=== PATIENT | female | born 1980 | race Caucasian/White ===

== ENCOUNTER 2016-05-14 20:49 | Inpatient (IN) | payer OTHER ==
--- NOTE | ~2016-05-14 | PN ---
Unit #: [id number] #: [id number] Patient: PENG HOFFMAN [id number] [facility] [address] [place] [address] [id number] MR#: [id number] NAME: PENG HOFFMAN ROOM: [facility] Age: 36 Sex: F Admission Date: 05/14/2016 : 1980 Attending Physician: Juliet Elder M.D. Admitting Physician: Juliet Elder M.D. Primary Care Physician: Primary Care Physician Hannah CIFUENTES PROGRESS NOTES DATE OF SERVICE: 05/16/2016 SUBJECTIVE Ms. Hoffman is a 36-year-old white female, who was seen today and chart was reviewed, and case was discussed with the staff. She has been anxious, withdrawn, though has not shown any agitation or irritability that she will be able to followup and cooperative with treatment recommendations and has been taking the medications and tolerating them fairly well with no reported side effects. MENTAL STATUS EXAMINATION Young white female, who was casually dressed with fair personal hygiene, appears to be in no acute distress or discomfort. She was awake and alert on interaction with intact orientation. Her mood was anxious with a congruent affect. She denies any suicidal or homicidal ideations. Her insight and judgment remain slightly impaired. TREATMENT PLAN 1. We will continue her on her current medications and treatment protocol. We will monitor her response to medications and make further adjustments as needed. 2. We will continue to follow up. Dictated by... Rangel Frye/jack TD: 05/17/2016 00:48 JOB #: [id number] [facility] PROGRESS NOTES X Juliet Elder MD PROGRESS NOTE
--- NOTE | ~2016-05-14 | HP ---
Unit #: [id number] #: [id number] Patient: PENG HOFFMAN [id number] [facility] [address] [place] [address] [id number] I MR#: [id number] NAME: PENG HOFFMAN ROOM: 81 Age: 36 Sex: F Admission Date: 05/14/2016 : 1980 Attending Physician: Juliet Elder M.D. Admitting Physician: Juliet Elder M.D. Primary Care Physician: Primary Care Physician No HISTORY AND PHYSICAL HISTORY OF PRESENT ILLNESS The patient is a 36-year-old female who was admitted to [facility] for bipolar disorder and suicidal ideations. PAST MEDICAL HISTORY 1. Bipolar disorder. 2. Hypertension. 3. Fibromyalgia. 4. Endometriosis. PAST SURGICAL HISTORY None. ALLERGIES Bactrim. HOME MEDICATIONS 1. Amlodipine 10 mg p.o. daily. 2. Lisinopril/HCTZ 20/12.5, 2 tabs p.o. daily. 3. Pravastatin 20 mg p.o. daily. 4. Ventolin 1 to 2 puffs p.r.n. 5. Vitamin D 50,000 units every week. 6. Neurontin 400 mg p.o. t.i.d. 7. Atenolol 50 mg p.o. at night. 8. Ibuprofen 800 mg p.o. b.i.d. SOCIAL HISTORY She endorses tobacco, marijuana, opiates, amphetamines, and prescription drug use. FAMILY HISTORY Medically noncontributory. REVIEW OF SYSTEMS CONSTITUTIONAL: The patient denies fever or chills. HEENT: Denies sore throat, ear pain, or runny nose. CARDIOVASCULAR: Denies chest pain, irregular heart rhythm, or palpitations. CHEST: Denies shortness of breath or cough. No hemoptysis. GI: Denies nausea, vomiting, or chronic constipation. ENDOCRINE: Denies increased thirst or urination. Denies recent weight loss or gain. : Denies dysuria, frequency, or hematuria. Unit #: [id number] #: [id number] Patient: PENG HOFFMAN SKIN: Denies any rashes. HEMATOLOGIC: Denies history of increased bleeding or bruising. MUSCULOSKELETAL: Denies any hot, swollen joints. No generalized pain. NEUROLOGIC: The patient denies problems with speech or vision, numbness, weakness, or tingling. Denies loss of bladder or bowel control. PHYSICAL EXAMINATION GENERAL: The patient is awake, in no acute distress. VITAL SIGNS: Temperature 97.7, heart rate 102, respirations 18, blood pressure 158/100. HEIGHT: She is 5 feet and 5-1/2 inches. WEIGHT: 260 pounds. HEENT: Head is atraumatic, normocephalic. Pupils are equal, round, and reactive. Extraocular movements are intact. No discharge from ears or nose. NECK: Supple. Trachea is midline. HEART: Regular rate and rhythm. LUNGS: Clear. ABDOMEN: Soft, nontender. : Not done. EXTREMITIES: No clubbing, cyanosis, or edema. Moves all extremities without focal deficit. SKIN: Warm, dry. No rashes or bruises. NEUROLOGIC: Within normal limits. Cranial nerves II through XII are intact. No focal deficits. Sensory and motor function is grossly normal. Moves all extremities well. Coordination, gait normal. Deep tendon reflexes intact. IMPRESSION Psychiatric admission. RECOMMENDATIONS PSYCHIATRIC: Per psychiatrist. MEDICAL: I see no contraindication to participate in facility activities. MEDICAL PROGNOSIS Fair. MEDICAL CONDITION Stable. Dictated by... Rebecca Macias TD: 05/15/2016 07:05 JOB #: [id number] Unit #: [id number] #: [id number] Patient: LAHUE,TIA HISTORY AND PHYSICAL X Jeane Cole APRN X HISTORY AND PHYSICAL
--- NOTE | ~2016-05-14 | PN ---
Unit #: [id number] #: [id number] Patient: PENG HOFFMAN [id number] [facility] [address] [place] [address] [id number] MR#: [id number] NAME: PENG HOFFMAN ROOM: [facility] Age: 36 Sex: F Admission Date: 05/14/2016 : 1980 Attending Physician: Juliet Elder M.D. Admitting Physician: Juliet Elder M.D. Primary Care Physician: Primary Care Physician Hannah COTTON NOTES DATE OF SERVICE: 05/17/2016 SUBJECTIVE Ms. Hoffman is a 36-year-old white female, who was seen today and chart was reviewed, and case was discussed with the staff. She reports feeling somewhat better and denies any concerns or complaints about medications and treatment. MENTAL STATUS EXAMINATION Young white female, who was casually dressed with fair personal hygiene, appears to be in no acute distress or discomfort. She was awake and alert with intact orientation. Her mood was anxious and depressed with congruent affect. She denies any suicidal or homicidal ideations, and also denies any auditory or visual hallucinations. Her insight and judgment remain slightly impaired. TREATMENT PLAN 1. We will continue on her current treatment protocol. We will monitor her response and make further adjustments as needed. 2. We will continue to follow up. Dictated by... Rangel Frye/jack TD: 05/18/2016 06:28 JOB #: [id number] [facility] PROGRESS NOTES X Juliet Elder MD X PROGRESS NOTE
--- NOTE | ~2016-05-14 | DS ---
Unit #: [id number] #: [id number] Patient: PENG HOFFMAN [id number] [facility] [address] [place] [address] [id number] MR#: [id number] NAME: PENG HOFFMAN ROOM: [facility] Age: 36 Sex: F Admission Date: 05/14/2016 : 1980 Discharge Date: 05/18/2016 Attending Physician: Juliet Elder M.D. Primary Care Physician: Primary Care Physician No DISCHARGE SUMMARY IDENTIFYING DATA Ms. Hoffman is a 36-year-old white female, who is a resident of [place], [place] and was transferred to us from [facility] in [place], [place]. DISCHARGE DIAGNOSES Psychiatric: Opioid dependence, moderate; methamphetamine dependence, moderate; cannabis abuse, moderate. Medical: Endometriosis, fibromyalgia, and hypertension. Stressors: Moderate psychosocial stressors. HISTORY OF PRESENT ILLNESS Please see initial psychiatric evaluation for details. PAST PSYCHIATRIC HISTORY Please see initial psychiatric evaluation for details. PAST MEDICAL HISTORY Please see initial psychiatric evaluation for details. HOSPITAL COURSE The patient was admitted to the adult chemical dependency and psychiatric unit at [facility] and was oriented to the hospital environment. Routine p.r.n. medications were initiated, and she was started on the detox protocol and was also started on Celexa to help her with depression and was closely monitored. She was taken medications regularly and was tolerating them fairly well and was able to show a decent and therapeutic response and was willing to continue treatment on an outpatient basis and as such, it was decided that she will be discharged home and will continue treatment on an outpatient basis. DISCHARGE MEDICATIONS Celexa 20 mg a day for depression. DISCHARGE CONDITION Stable. PROGNOSIS Fair. Dictated by... Juliet Elder M.D. Unit #: [id number] #: [id number] Patient: PENG HOFFMAN IAA/modl TD: 05/18/2016 06:54 JOB #: [id number] DISCHARGE SUMMARY X Juliet Elder MD X DISCHARGE SUMMARY
--- NOTE | ~2016-05-14 | PA ---
Unit #: [id number] #: [id number] Patient: PENG HOFFMAN [id number] [facility] [address] [place] [address] [id number] I MR#: [id number] NAME: PENG HOFFMAN ROOM: P181 Age: 36 Sex: F Admission Date: 05/14/2016 : 1980 Date of Assessment: 05/15/2016 Attending Physician: Juliet Elder M.D. Admitting Physician: Juliet Elder M.D. Primary Care Physician: Primary Care Physician No PSYCHIATRIC ASSESSMENT DATE OF SERVICE 05/15/2016. IDENTIFYING DATA Ms. Hoffman is a 36-year-old single white female who is a resident of [place], [place] and was transferred to us from [facility] in [place], [place]. CHIEF COMPLAINT "I have bipolar disorder and I don't want to live anymore." HISTORY OF PRESENT ILLNESS Ms. Hoffman is a 36-year-old white female who was transferred to us from [facility], where she presented reporting history of bipolar disorder and feeling depressed, and stating that she does not want to live anymore and that she has been off medication for 3 weeks and reported that she has been considering jumping off the bridge. She reports that she is currently unemployed and has been for approximately a year and lives with her children ages 12 and 15. Children with her aunt and uncle at this time. The patient reports still grieving the loss of her and has been having difficulty with her finances, inability to pay bills, and receives survivors benefit and does endorse increasing depression, anxiety, irritability, restlessness, feelings of hopelessness and helplessness, and suicidal ideation. SUBSTANCE ABUSE HISTORY The patient reports history of cannabis and opioids and amphetamines, and opioid abuse, and currently she has been using Percocet with the last use being yesterday and has used 0.5 g of methamphetamine yesterday as well and has been smoking cannabis on regular basis. PAST PSYCHIATRIC HISTORY The patient has had history of inpatient chemical dependency psychiatric treatment multiple times and review of the medical records indicated currently she is not seeing a psychiatrist. PAST MEDICAL HISTORY Endometriosis, fibromyalgia, and hypertension. PERSONAL AND SOCIAL HISTORY A 36-year-old white female who reports that she is , and lives with her 2 children and is unemployed, and has poor social support system. Unit #: [id number] #: [id number] Patient: PENG HOFFMAN MENTAL STATUS EXAMINATION Young female who was casually dressed with fair personal hygiene, appears to be in no acute distress or discomfort. She was awake and alert on interaction with intact orientation to time, place, and person. Her mood was anxious and depressed with a congruent affect. Her speech was slow and goal directed. She reports having suicidal ideations, but denies any homicidal ideations, and also denies any auditory or visual hallucinations. Her insight and judgment remain significantly impaired. DIAGNOSTIC IMPRESSION Psychiatric: Opioid abuse, moderate; methamphetamine abuse, moderate; and cannabis abuse, moderate. Medical: Endometriosis, fibromyalgia, hypertension. Stressors: Moderate psychosocial stressors. TREATMENT PLAN 1. The patient has presented with history of substance abuse and mood disorder, and has been decompensating and will need inpatient hospitalization for detoxification, safety, and stabilization. We will start on detox protocol. We will closely monitor for any worsening withdrawal symptoms. 2. Supportive therapy was provided to the patient. 3. Safe, structured, and nourishing environment will be provided. ESTIMATED LENGTH OF STAY 5 to 7 days. ABILITY TO HELP SELF Limited. WILLINGNESS TO HELP SELF The patient appears to be willing to help self. STRENGTHS Communicative. Cooperative. PROBLEMS 1. Chronic dysphoric symptoms. 2. Poor social support system. DISCHARGE CRITERIA This will be contingent upon the patient's ability to show resolution of her depression and anxiety and her ability to stay safe to herself, particularly after discharge from the hospital. Dictated by... Rangel Frye/jack TD: 05/15/2016 20:39 JOB #: [id number] Unit #: [id number] #: [id number] Patient: PENG HOFFMAN PSYCHIATRIC ASSESSMENT X Juliet Elder MD X PSYCHIATRIC ASSESSMENT
[~2016-05-14 20:49] MED LIST: LAMICTAL PO; TENORETIC 50 TA1 TAB PO
[2016-05-15 09:29] LABS: URINE APPEARANCE TURBID; URINE BILIRUBIN NEG (NEG); URINE BLOOD NEG (NEG); URINE COLOR YELLOW; URINE GLUCOSE NEG (NEG); URINE KETONE NEG (NEG); URINE LEUKOCYTE ESTERASE NEG (NEG); URINE NITRATE NEG (NEG); URINE PH 5.5 (5-8); URINE PROTEIN TRACE (NEG); URINE SPECIFIC GRAVITY 1.022 (1.003-1.035); URINE UROBILINOGEN 0.2 MG/DL (NEG)
[2016-05-15 10:22] LABS: AMPHETAMINE POS (NEG); BARBITURATES NEG (NEG); BENZODIAZEPINES NEG (NEG); COCAINE NEG (NEG); MARIJUANA POS (NEG); OPIATES NEG (NEG); TRICYCLIC ANTIDEPRESSANTS NEG (NEG); U METHADONE POS (NEG)
[2016-05-15 12:29] LABS: BASOPHIL# 0.1 X10e3 (0-0.3); BASOPHIL% 0.9 % (0-2.5); EOSINOPHIL# 0.2 X10e3 (0-0.7); EOSINOPHIL% 3.4 % (0.0-7.0); HEMATOCRIT 43.8 % (35.0-45.0); HEMOGLOBIN 14.2 gm/dL (12.0-16.0); LYMPHOCYTE# 2.6 X10e3 (1.0-3.5); MEAN CELL VOLUME 82.6 FL (83-96); MEAN CORPUSCULAR HEMOGLOBIN 26.8 PG (28-34); MEAN CORPUSCULAR HGB CONC 32.5 g/dL (30-36); MEAN PLATELET VOLUME 8.2 FL (6.5-11.5); MONOCYTE# 0.4 X10e3 (0-1.0); MONOCYTE% 5.1 % (3.0-12.0); NEUTROPHIL% 54.6 % (40-75); PLATELET COUNT 324 X10e3 (140-420); RED CELL DISTRIBUTION WIDTH 14.6 % (11.0-15.5); WHITE BLOOD COUNT 7.3 X10e3 (4.0-10.5)
[2016-05-15 12:30] LABS: DIFF IND NO
[2016-05-15 12:44] LABS: THYROID STIMULATING HORMONE 0.74 uIU/ml (0.34-5.60)
[2016-05-15 12:49] LABS: ALBUMIN SERUM 3.1 g/dL (3.5-5.0); ALKALINE PHOSPHATASE 69 U/L (32-92); ALT (SGPT) 19 U/L (10-40); AST (SGOT) 20 U/L (10-42); BILIRUBIN,TOTAL 0.2 mg/dL (0.2-2.0); BLOOD UREA NITROGEN 9 mg/dL (9-23); BUN/CREATININE RATIO 12.85; CALCIUM SERUM 8.8 mg/dL (8.4-10.2); CARBON DIOXIDE 28 mmol/L (22-31); CHLORIDE 101 mmol/L (100-111); CREATININE SERUM 0.7 mg/dL (0.6-1.4); GLOM FILT RATE Estimated ABOVE60 mL/min (>60); GLUCOSE FASTING 121 mg/dL (70-110); POTASSIUM 3.8 mmol/L (3.5-5.1); SODIUM 138 mmol/L (135-145)
[2016-05-15 12:51] LABS: FREE THYROXIN (T4) 0.93 ng/dL (0.58-1.64)
[2016-05-20 21:09] LABS: HEP C AB (HEPPAN) Reactive (Nonreactive)
== END 2016-05-18 10:51 | disposition home or self-care (01) | DRG 897 ==
LOC: P1E 20:49
PROVIDERS: Psychiatry & Neurology Psychiatry
PROC: HZ2ZZZZ Detoxification Services for Substance Abuse Treatment (ICD-10-PCS; principal; 2016-05-14)
DX: F11.20 Opioid dependence, uncomplicated (principal); F31.9 Bipolar disorder, unspecified; I10 Essential (primary) hypertension; F15.10 Other stimulant abuse, uncomplicated; F12.10 Cannabis abuse, uncomplicated; N80.9 Endometriosis, unspecified; M79.7 Fibromyalgia
CPT/HCPCS: 80053; 80307; 81003; 84439; 84443; 85025; 86592; 86803; 87522; 87806